=== PATIENT | female | born 1995 | race Caucasian/White ===

== ENCOUNTER 2017-03-06 20:36 | Emergency (ER) | payer SELFPAY ==
[~2017-03-06] VITALS: Ht 147.3 cm; Wt 63.6 kg
[2017-03-06] MEDS ORDERED: SODIUM CHLORIDE 0.9% 1,000 ML IV ONE (23:06)
[2017-03-06] MEDS ORDERED: ASPIRIN 81MG TABLET PO ONE (23:15)
[2017-03-06] MEDS ORDERED: MAGNESIUM/ALUMINUM HYDROXIDE/SIMETHICONE 30ML UDC PO ONE (23:15)
[2017-03-06] MEDS ORDERED: DICYCLOMINE 10 MG/5 ML ORAL SYR PO ONE (23:15)
[2017-03-06 23:34] LABS: BASOPHILS % 0.4 % (0.0-2.0); EOSINOPHILS % 1.1 % (0.0-5.0); HEMOGLOBIN. 12.5 g/dL (12.0-16.0); LYMPHOCYTES % 50.3 % (20.0-50.0); MEAN CORPUSCULAR HEMOGLOBIN 31.3 pg (28.0-32.0); MEAN CORPUSCULAR VOLUME 90.5 fL (81.0-99.0); MEAN PLATELET VOLUME 8.5 fl (7.4-10.4); MONOCYTES % 7.2 % (2.0-8.0); PLATELET 234 x1000/uL (130-400); RED BLOOD CELL COUNT 3.98 mill/uL (4.2-5.4)
[2017-03-06 23:58] LABS: HCG SCREEN NEGATIVE
[2017-03-07 00:24] LABS: CARBON DIOXIDE 26 mEq/L (21-32); CHLORIDE 107 mEq/L (98-107); ETHANOL BLOOD < 10 mg/dL; TROPONIN I < 0.02 ng/mL (0.00-0.04)
[2017-03-07 01:50] VITALS: BP 106/56
== END 2017-03-07 01:50 | disposition home or self-care (01) ==
LOC: ER 20:36
DX: R07.2 Precordial pain (principal); I10 Essential (primary) hypertension; F12.10 Cannabis abuse, uncomplicated
CPT/HCPCS: 36415; 71010; 80053; 83690; 83880; 84484; 84703; 85025; 85379; 93005; 99285; G0482; J7030; Z7610